=== PATIENT | female | born 2000 | race Caucasian/White ===

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

== ENCOUNTER 2023-12-17 01:36 | Emergency (ER) | payer OTHER, SELFPAY ==
--- NOTE | 2023-12-17 01:41 | ED.PSYCH ---
HPI - Psych General Chief Complaint: Psychiatric Symptoms Stated Complaint: psychiatric Time Seen by Provider: 12/17/23 01:40 Source: patient Mode of arrival: ambulatory Limitations: no limitations History of Present Illness HPI Narrative: Patient is a 23-year-old female with some self-harm concerns this evening. Her friend called the police when she was confiding with him over the phone about self-harm. She will not tell us what the stresses but she did have a recent break-up with her boyfriend according to parents. She is highly stressed however with school as she is on a full scholarship for track and Education. She has counselors at her school and on medication through psychiatric services at her school. She claims no suicide or homicide ideations this evening. MD complaint: feels depressed Onset (ago): year(s) (3) Duration: constant History of same: Yes Relieving factors: medication and therapy Exacerbating factors: other ( recent break-up with a boyfriend and stress with school) Context: significant life stressor Associated psychiatric symptoms: depression and other ( self-harm considerations and self-harm attempt to her left forearm with a shaving razor) Associated symptoms: denies other symptoms Treatments prior to arrival: other ( police brought her in after the call for concerns this evening from her friend) If self harm: admits thoughts of self harm, has plan ( left forearm abrasions from a razor superficially), has acted on plan and self-inflicted trauma Details of plan: patient however is not suicidal at this time nor homicidal; when she cut herself, she was not suicidal she was just doing self-harm to relieve pain of her stress Related Data Home Medications Medication Instructions Recorded Confirmed No Home Medications 04/02/20 12/17/23 Allergies Allergy/AdvReac Type Severity Reaction Status Date / Time Cephalosporins Allergy Intermediate hives Verified 05/19/20 08:35 Review of Systems Review of Systems: All systems reviewed & are unremarkable except as noted in HPI and below Constitutional: Constitutional: Reports no additional constitutional complaints Eyes: Eyes: Reports no additional eye complaints ENT: Reports system reviewed and no additional complaints, except as documented Cardiovascular: Cardiovascular: Reports no additional cardiovascular complaints Respiratory: Respiratory: Reports no additional respiratory complaints Gastrointestinal: Gastrointestinal: Reports no additional gastrointestinal complaints Genitourinary: Genitourinary: Reports no additional female genitourinary complaints Musculoskeletal: Musculoskeletal: Reports no additional musculoskeletal complaints Integumentary/Breasts: Skin/Breast: Reports system reviewed and no additional complaints, except as docu Neurologic: Reports system reviewed and no additional complaints, except as documented Psychiatric: Psychiatric: Reports no additional psychiatric complaints Endocrine: Endocrine: Reports no additional endocrine complaints Hematologic/Lymphatic: Hematologic/Lymphatic: Reports no additional hematologic/lymphatic complaints Allergic/Immunologic: Allergic/Immunologic: Reports no additional allergic/immunologic complaints PMFSH Past Medical History Medical History (Updated 12/17/23 @ 02:23 by Jaskaran Avalos MD) Asthma Stress fracture of ankle with routine healing Social History Social History Smoking status: Unknown if ever smoked Exam Const: General: healthy appearing Nutritional Appearance: well nourished Orientation/consciousness: patient oriented x3 HENMT: Head: normal to inspection Ears: external ears normal Face/Nose/Sinus: Normal external nose present Eyes: Conjunctivae: conjunctivae normal Pupils: Equal, round and reactive pupils present EOM: EOMs intact bilaterally Neck: Neck: normal visual inspection Chest: Chest palpation & i
[2023-12-17 01:44] VITALS: BP 132/88; PULSE 76; RESP 18; TEMP 37.3; O2SAT 100
[2023-12-17] MEDS: NEOMYCIN/POLYMYXIN/BACITRACIN OINTMENT PACKET 2 PACKET TOPICAL (02:08)
--- NOTE | 2023-12-17 02:10 | PC.NURSE ---
This RN and traci JACOBSON spoke with patients parents about the event that happened tonight. Parents stated that the patient and her boyfriend split up again and according to parents his a very toxic person for her. Patient is really upset about ruining easter and the weekend for her family, patient was reassured that she has not. Patient requesting to go home, patient educated on process of intake and that it would be up to the doctors mental health evaluation to determine a further work up but patient was educated on full intake process that could occur. Patient denies SI/HI still at this time and has a safety plan to speak with her councellor and therapist on tuesday. Parents wish to take patient home and will resume care of patient and will hold her accountable to her safety plan and parents stated that they will make sure she is safe, watching her through out tonight. Parents stated that patient is extremely stressed with running [employer] and majoring in chemistry at [employer] and patient feels that she disappointed her family today. Patient agrees to go home with her parents under her safety plan to follow up with her psych people and to maintain compliance with her medications.
== END 2023-12-17 02:32 | disposition home or self-care (01) ==
PROVIDERS: Emergency Provider Emergency Medicine
DX: F43.9 Reaction to severe stress, unspecified (principal); F32.A Depression, unspecified
CPT/HCPCS: 99282